=== PATIENT | male | born 1980 ===

== ENCOUNTER 2022-12-06 19:33 | Outpatient (CLI) | payer OTHER, SELFPAY ==
--- NOTE | 2022-12-15 12:45 | W.PM.SLEEP ---
Sleep Study Details Details Interpreting Provider: Luiz Schwab MD Date of Sleep Study: 12/06/22 Sleep Study Details: STUDY TYPE:? Home ? BMI:? All not recorded ORDERING PROVIDER:? Xochitl INDICATION:? Concerns about sleep apnea] ? SLEEP SUMMARY:? 349.1 minutes monitored RESPIRATORY SUMMARY:? AHI 28.7, supine 37.5, left lateral 18.9, right lateral 13.5 Low oxygen 82% 1.1% of study oxygen less than 90%, 0.1% of study oxygen less than 85% Snoring 54.5% PERIODIC LIMB MOVEMENTS OF SLEEP:? Not recorded CARDIAC:? Range 50 to 92, mean 64.5 beats per minute minute IMPRESSION:? High moderate obstructive sleep apnea with supine position dependency RECOMMENDATION: Favor treatment would be AutoSet CPAP at a pressure of 4-17. A dental appliance may also be an option for this patient.
== END 2022-12-06 19:34 | disposition home or self-care (01) ==
LOC: SLEEP 19:33
PROVIDERS: Visit Provider Otolaryngology
DX: G47.33 Obstructive sleep apnea (adult) (pediatric) (principal)
CPT/HCPCS: 95806